=== PATIENT | male | born 1980 | race Two or more races ===

== ENCOUNTER 2020-02-28 16:36 | Outpatient (CLI) | payer OTHER | END 2020-02-28 16:37 | disposition home or self-care (01) | LOC: COV 16:36 | PROVIDERS: ATTEND Family Medicine | DX: R50.9 Fever, unspecified (principal); M79.10 Myalgia, unspecified site; R53.83 Other fatigue; R19.7 Diarrhea, unspecified; R09.81 Nasal congestion; Z20.828 Contact with and (suspected) exposure to other viral communicable diseases ==

== ENCOUNTER 2020-07-30 22:17 | Emergency (ER) | payer OTHER ==
--- NOTE | 2020-07-30 22:56 | ED Physician Documentation ---
PD HPI CHEST PAIN - Stated complaint Stated Complaint: ANXIETY - Chief complaint Chief Complaint: MHE - History obtained from History obtained from: Patient - History of Present Illness Timing - onset: Enter time (19:30), Today Timing - details: Intermittant Quality: Pain Location: Left chest Radiation: Other (does not radiate) Improved by: Nothing Worsened by: Other (no exacerbating factors) Associated symptoms: General Weakness. No: Shortness of air, Diaphoresis, Nausea, Vomiting, Feeling faint / dizzy, Palpitations Similar symptoms before: Other (some similarity to previous episodes attributed to anxiety) Recently seen: Not recently seen - Additional information Additional information: c/o episodic sharp left chest pains since 7:30 this evening. no inciting/exacerbating/ameliorating factors. the episodes last for 1-2 seconds. he subsequently developed generalized weakness and feeling shaky (per patient) and stiff in his arms and legs. he says he had similar symptoms in the past that were attributed to anxiety and would respond well to alprazolam. Review of Systems Constitutional: reports: Reviewed and negative Cardiac: reports: Chest pain / pressure. denies: Palpitations, Pedal edema Respiratory: reports: Reviewed and negative GI: reports: Reviewed and negative Musculoskeletal: reports: Reviewed and negative Neurologic: reports: Generalized weakness. denies: Focal weakness, Numbness, Headache PD PAST MEDICAL HISTORY - Past Medical History Past Medical History: No - Past Surgical History Past Surgical History: No - Present Medications Home Medications: Ambulatory Orders Medication Instructions Recorded Confirmed ALPRAZolam [Alprazolam] 0.5 mg PO Q6HR PRN #14 tablet 07/31/20 - Allergies Allergies/Adverse Reactions: Allergies Allergy/AdvReac Type Severity Reaction Status Date / Time No Known Drug Allergies Allergy Verified 07/30/20 23:37 - Living Situation Living Situation: reports: With spouse/s.o. (s.o. 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 No: Q waves - Labs Labs: Laboratory Tests 07/30/20 07/30/20 07/30/20 23:40 23:40 23:40 WBC 4.2 L RBC 5.27 Hgb 14.9 Hct 43.6 MCV 82.7 MCH 28.3 MCHC 34.2 RDW 13.2 Plt Count 193 MPV 10.2 Neut # (Auto) 2.8 Lymph # (Auto) 0.9 L Levy # (Auto) 0.4 Eos # (Auto) 0.1 Baso # (Auto) 0.0 Absolute Nucleated RBC 0.00 Nucleated RBC % 0.0 Sodium 137 Potassium 3.5 Chloride 102 Carbon Dioxide 25 Anion Gap 10.0 BUN 20 Creatinine 1.0 Estimated GFR (MDRD) 84 L Glucose 123 H Calcium 9.3 Troponin I High Sens 3.4 - Rads (name of study) CXR Radiology: Prelim report reviewed, See rad report PD MEDICAL DECISION MAKING - ED course Complexity details: reviewed results, re-evaluated patient, considered differential, d/w patient ED course: Patient is an NAD on exam as well as on reevaluation. he describes episodic left chest pain that is a very brief duration, lasting 1 to 2 seconds per episode, and subsequently developed upper and lower extremity stiffness and shakiness. He did not have these symptoms, however, by the time he was being evaluated in the emergency department. His tests are reassuring with no concerning findings on EKG, chest x-ray, blood tests. I advised him to follow up with his primary care provider, and return to the emergency department if worse in any way. Departure - Departure Disposition: 01 Home, Self Care Clinical Impression: Chest pain Qualifiers: Chest pain type: unspecified Qualified Code(s): R07.9 - Chest pain, unspecified Condition: Good Instructions: ED Chest Pain Atypical Unkn Cause Prescriptions: ALPRAZolam [Alprazolam] 0.5 mg PO Q6HR PRN #14 tablet PRN Reason: Anxiety Discharge Date/Time: 07/31/20 00:57
[2020-07-30 23:44] LABS: BASOPHILS % (AUTO) 0.7 %; EOSINOPHILS # (AUTO) 0.1 10^3/uL (0.0-0.7); EOSINOPHILS % (AUTO) 3.1 %; HCT - HEMATOCRIT 43.6 % (42.0-52.0); HGB - HEMOGLOBIN 14.9 g/dL (14.0-18.0); LYMPHOCYTES # (AUTO) 0.9 10^3/uL (1.5-3.5); LYMPHOCYTES % (AUTO) 20.5 %; MEAN CORPUSCULAR HEMOGLOBIN 28.3 pg (27.0-31.0); MEAN CORPUSCULAR HGB CONC 34.2 g/dL (32.0-36.0); MEAN CORPUSCULAR VOLUME 82.7 fL (80.0-94.0); MEAN PLATELET VOLUME 10.2 fL (7.4-11.4); MONOCYTES # (AUTO) 0.4 10^3/uL (0.0-1.0); MONOCYTES % (AUTO) 8.4 %; NEUTROPHILS # (AUTO) 2.8 10^3/uL (1.5-6.6); NEUTROPHILS % (AUTO) 67.1 %; PLT - PLATELET COUNT 193 10^3/uL (130-450); RED BLOOD COUNT 5.27 10^6/uL (4.70-6.10); RED CELL DISTRIBUTION WIDTH 13.2 % (12.0-15.0); WHITE BLOOD COUNT 4.2 x10^3/uL (4.8-10.8)
[2020-07-30 23:54] LABS: CALCIUM 9.3 mg/dL (8.5-10.3); POTASSIUM 3.5 mmol/L (3.5-5.0)
[2020-07-31 00:21] VITALS: BP 144/81
--- NOTE | 2020-07-31 08:09 | XRAY Report ---
PROCEDURE: Chest 2 View X-Ray INDICATIONS: left chest pain TECHNIQUE: 2 view(s) of the chest. COMPARISON: None. FINDINGS: Surgical changes and devices: None. Lungs and pleura: No pleural effusions or pneumothorax. Lungs are clear. Mediastinum: Mediastinal contours are normal. Heart size is normal. Bones and chest wall: No suspicious bony abnormalities. Soft tissues appear unremarkable. IMPRESSION: No acute cardiopulmonary process. Agree with preliminary reading. Reviewed by: Wayne Mullen MD on 07/31/2020 8:07 AM PDT Approved by: Wayne Mullen MD on 07/31/2020 8:07 AM PDT Station ID: [id number]
== END 2020-07-31 00:57 | disposition home or self-care (01) ==
LOC: ED 22:17
DX: R07.9 Chest pain, unspecified (principal); R53.1 Weakness; I44.7 Left bundle-branch block, unspecified; F41.9 Anxiety disorder, unspecified
CPT/HCPCS: 36415; 80048; 84484; 85025; 93005; 99284